=== PATIENT | female | born 1945 | race Caucasian/White ===

== ENCOUNTER 2017-05-24 08:31 | Day surgery (SDC) | payer MEDICARE, OTHER ==
[2017-04-12 09:52] VITALS: BP 122/78
[~2017-05-24] VITALS: Ht 160 cm; Wt 58.5 kg
[~2017-05-24 08:31] MED LIST: ACET-1600 PO; BACITRACIN 50,000 UNIT ONE; BUPIVACAINE/PF 0.5% ONE; MV,C400T3 PO; THROMBIN 5,000 UNIT VIAL TP ONE
[2017-05-24] MEDS ORDERED: LACTATED RINGERS 1,000 ML IV SCH (09:12)
[2017-05-24] MEDS ORDERED: MIDAZOLAM 1 MG/ML, 2ML ONE (09:13)
[2017-05-24] MEDS ORDERED: FENTANYL PF 100 MCG/2ML ONE ×4 (09:13→11:27)
[2017-05-24] MEDS ORDERED: LIDOCAINE 1%, 2ML SQ PRN (09:30)
[2017-05-24] MEDS ORDERED: PROPOFOL 10 MG/ML, 20ML ONE (09:56)
[2017-05-24] MEDS ORDERED: SUCCINYLCHOLINE 20 MG/ML, 10ML ONE (09:56)
[2017-05-24] MEDS ORDERED: PROPOFOL 10 MG/ML, 50ML ONE (09:56)
[2017-05-24] MEDS ORDERED: DEXAMETHASONE 4 MG/ML, 1ML ONE (09:56)
[2017-05-24] MEDS ORDERED: ONDANSETRON 2MG/ML, 2ML ONE (09:56)
[2017-05-24] MEDS ORDERED: CEFAZOLIN 1,000 MG ONE (09:56)
[2017-05-24] MEDS ORDERED: MEPERIDINE/PF 25MG/0.5ML IVPush PRN (11:00)
[2017-05-24] MEDS ORDERED: hydrALAzine 20 MG/ML, 1ML IV PRN (11:00)
[2017-05-24] MEDS ORDERED: ACETAMINOPHEN 325 MG TABLET PO PRN (11:00)
[2017-05-24] MEDS ORDERED: MIDAZOLAM 1 MG/ML, 2ML IV PRN (11:00)
[2017-05-24] MEDS ORDERED: OXYcodone 5 MG/5 ML ORAL.SOL UDC PO PRN (11:00)
[2017-05-24] MEDS ORDERED: ALBUTEROL SULFATE 2.5 MG/3 ML NPPB PRN (11:00)
[2017-05-24] MEDS ORDERED: METOPROLOL 1 MG/ML, 5ML IV PRN (11:00)
[2017-05-24] MEDS ORDERED: PROMETHAZINE 25 MG/ML, 1ML IV PRN (11:00)
[2017-05-24] MEDS ORDERED: OXYcodone 5 MG/5 ML ORAL.SOL UDC ONE (11:27)
[2017-05-24] MEDS ORDERED: ACETAMINOPHEN 650 MG/20.3 ML UDC ONE (11:28)
[2017-05-24] MEDS: FENTANYL PF 100 MCG/2ML IV PRN ×3 (11:29→11:43)
[2017-05-24] MEDS ORDERED: HYDROmorphone 1 MG/ML, 1ML ONE (11:47)
[2017-05-24] MEDS: HYDROmorphone 1 MG/ML, 1ML IV PRN ×3 (11:53→12:16)
== END 2017-05-24 15:10 ==
LOC: OUT 08:31
PROVIDERS: ATTEND Neurological Surgery
DX: M51.16 Intervertebral disc disorders with radiculopathy, lumbar region (principal); F17.210 Nicotine dependence, cigarettes, uncomplicated; Z88.5 Allergy status to narcotic agent; Z88.0 Allergy status to penicillin
CPT/HCPCS: 63030; 72100; J0330; J0690; J1100; J1170; J2250; J2405; J2704; J3010; J3490; J7120